=== PATIENT | female | born 1995 | race Caucasian/White ===

== ENCOUNTER 2016-07-01 18:02 | Emergency (ER) | payer OTHER ==
[2016-07-01 19:25] VITALS: BP 123/84
== END 2016-07-01 19:25 | disposition home or self-care (01) ==
LOC: ED 18:02
DX: J45.901 Unspecified asthma with (acute) exacerbation (principal); Z79.51 Long term (current) use of inhaled steroids
CPT/HCPCS: J0696; J1100; J7620

== ENCOUNTER 2016-07-03 10:47 | Emergency (ER) | payer OTHER ==
[2016-07-03 12:58] LABS: CALCIUM 8.4 mg/dL (8.5-10.1); CARBON DIOXIDE 25.1 mmol/L (21-32); CHLORIDE SERUM 108 mmol/L (98-107); CREATININE SERUM 0.5 mg/dL (0.6-1.0); GFR1 > 60 mL/min; GLUCOSE SERUM 104 mg/dL (74-106); SODIUM SERUM 142 mmol/L (136-145)
[2016-07-03 13:03] LABS: ALBUMIN 3.6 g/dL (3.4-5.0); ALKALINE PHOSPHATASE 84 U/L (46-116); ALT/SGPT 246 U/L (14-59); AST/SGOT 133 U/L (15-37); BILIRUBIN TOTAL 0.46 mg/dL (0.20-1.00); TOTAL PROTEIN, SERUM 6.9 g/dL (6.4-8.2)
[2016-07-03 13:25] LABS: BASOPHIL % 0.2 % (0-2); PLATELET COUNT 301 x10^3mcL (130-400)
[2016-07-03 13:28] LABS: RED CELL DISTRIBUTION WIDTH 15.9 % (11.5-14.5)
[2016-07-03 14:46] VITALS: BP 147/71
== END 2016-07-03 14:46 | disposition home or self-care (01) ==
LOC: ED 10:47
PROVIDERS: Emergency Medicine
DX: K29.71 Gastritis, unspecified, with bleeding (principal); J45.909 Unspecified asthma, uncomplicated; D50.9 Iron deficiency anemia, unspecified
CPT/HCPCS: C9113; J2405; J7030

== ENCOUNTER 2017-03-03 22:05 | Emergency (ER) | payer OTHER ==
[~2017-03-03] VITALS: Ht 144.8 cm; Wt 84.4 kg
[2017-03-03 22:15] VITALS: Ht 144.8 cm; Wt 84.4 kg
[2017-03-03 23:37] VITALS: BP 132/84
== END 2017-03-03 23:37 | disposition home or self-care (01) ==
LOC: ED 22:05
DX: J03.90 Acute tonsillitis, unspecified (principal)
CPT/HCPCS: J0561; J1100

== ENCOUNTER 2017-03-21 17:15 | Emergency (ER) | payer OTHER ==
[~2017-03-21] VITALS: Ht 144.8 cm; Wt 82.5 kg
[2017-03-21 17:18] VITALS: BP 123/79; Ht 144.8 cm; Wt 82.5 kg
== END 2017-03-21 18:26 | disposition home or self-care (01) ==
LOC: ED 17:15
DX: J45.909 Unspecified asthma, uncomplicated (principal); J06.9 Acute upper respiratory infection, unspecified
CPT/HCPCS: J7613

== ENCOUNTER 2017-12-03 22:39 | Emergency (ER) | payer OTHER ==
[~2017-12-03] VITALS: Ht 144.8 cm; Wt 91.2 kg
[2017-12-03 22:43] VITALS: Ht 144.8 cm; Wt 91.2 kg
[2017-12-04 00:08] VITALS: BP 135/90
[2017-12-04 01:00] LABS: AMPHETAMINE QUAL UR NONE DETECTED (See below)
== END 2017-12-04 01:40 | disposition home or self-care (01) ==
LOC: ED 22:39
PROVIDERS: Emergency Medicine
DX: R06.02 Shortness of breath (principal); F17.210 Nicotine dependence, cigarettes, uncomplicated; J45.909 Unspecified asthma, uncomplicated
CPT/HCPCS: 85378; J7620

== ENCOUNTER 2019-06-01 20:07 | Emergency (ER) | payer OTHER ==
[~2019-06-01] VITALS: Ht 144.8 cm; Wt 102.1 kg
[2019-06-01 20:27] VITALS: Ht 144.8 cm; Wt 102.1 kg
[2019-06-01 20:53] VITALS: BP 159/109
== END 2019-06-01 20:53 | disposition home or self-care (01) ==
LOC: ED 20:07
DX: R05 Cough (principal); J45.909 Unspecified asthma, uncomplicated